=== PATIENT | male | born 1990 | race Caucasian/White ===

== ENCOUNTER 2020-05-07 21:47 | Emergency (ER) | payer SELFPAY ==
[2020-05-07 22:03] VITALS: Wt 109.1 kg
[2020-05-07 23:23] LABS: HEMATOCRIT 40.8 % (42.0-54.0); HEMOGLOBIN 14.1 g/dL (13.5-17.5); MCH 29.4 pg (26.0-34.0); MCHC 34.6 g/dL (31.0-37.0); MCV 85.2 fL (80.0-100.0); PLATELET COUNT 396 10x3/uL (130-400); RBC 4.79 10x6/uL (4.20-6.10); RDW 12.5 % (11.5-14.5); WBC 18.2 10x3/uL (4.8-10.8)
[2020-05-07 23:35] LABS: CALCIUM 9.1 mg/dL (8.5-10.1); CARBON DIOXIDE 26.6 mmol/L (21.0-32.0); CREATININE - SERUM 1.5 mg/dL (0.6-1.3); POTASSIUM - SERUM 3.6 mmol/L (3.5-5.1)
[2020-05-07 23:41] LABS: BILIRUBIN - TOTAL 0.37 mg/dL (0.2-1.3); PROTEIN - SERUM 8.9 g/dL (6.4-8.2)
[2020-05-08] MEDS ORDERED: FLOMAX0.4 MG PO (00:05)
[2020-05-08] MEDS ORDERED: HYDROCODON-ACE1 EA10 PO (00:05)
[2020-05-08 00:32] VITALS: BP 116/65
== END 2020-05-08 00:32 | disposition home or self-care (01) ==
LOC: D.ER 21:47
PROVIDERS: Family Medicine
DX: N20.0 Calculus of kidney (principal); R10.9 Unspecified abdominal pain